=== PATIENT | male | born 1955 | race Caucasian/White ===

== ENCOUNTER 2020-10-14 11:32 | Outpatient (CLI) | payer BC, SELFPAY ==
--- NOTE | ~2020-10-14 | CT_ITS ---
EXAMINATION: CT abdomen pelvis wo con DATE: 10/14/2020 11:56 INDICATION: Right lower quadrant pain TECHNIQUE: Computed tomography (CT) of the abdomen and pelvis was performed without intravenous contr ast. The dose-length product was 386.44 mGy-cm. Automated exposure control and iterative reconstructi on technique were employed. COMPARISON: None. FINDINGS: Lung bases are unremarkable. Heart size normal. No significant pleural or pericardial effus ion. There is a 2 cm hypodense mass of the right hepatic lobe, image 23. There is a smaller subcentim eter hypodensity of the left hepatic lobe. Calcified granulomas in the spleen. The pancreas, adrenal glands and kidneys are unremarkable. Gallbladder is present. There is acute site ethmoid diverticulit is without evidence for perforation or abscess. No free air or free fluid. No abnormal pelvic masses or fluid collections. There are surgical changes consistent with previous ventral hernia repair. Nono bstructive bowel gas pattern. Moderate colonic fecal loading. Mild lumbar spondylosis. IMPRESSION: 1. Acute sigmoid diverticulitis. 2: 2 cm hypodense mass right hepatic lobe. Smaller subcentimeter hypodense lesion of the left hepatic lobe. Correlation with ultrasound or contrast-enhanced CT recommended for further characterization. Reviewed, dictated and finalized at location A. IT[employer] ASSURANCE ADVISOR IMPRESSION: 1. Acute sigmoid diverticulitis. 2: 2 cm hypodense mass right hepatic lobe. Smaller subcentimeter hypodense lesi on of the left hepatic lobe. Correlation with ultrasound or contrast-enhanced C T recommended for further characterization.
== END 2020-10-14 11:33 | disposition home or self-care (01) ==
LOC: ANHIMG 11:40
PROVIDERS: PCP Family Medicine; Visit Provider Family Medicine
DX: R10.31 Right lower quadrant pain (principal); M54.5 Low back pain; K57.32 Diverticulitis of large intestine without perforation or abscess without bleeding; K76.89 Other specified diseases of liver; M47.816 Spondylosis without myelopathy or radiculopathy, lumbar region
CPT/HCPCS: 74176

== ENCOUNTER 2021-03-07 09:35 | Emergency (ER) | payer BC, SELFPAY ==
[2021-03-07 09:40] VITALS: BP 143/86; PULSE 64; RESP 12; TEMP 36.7; O2SAT 99
--- NOTE | 2021-03-07 10:14 | ED.EAR ---
HPI - Ear Problem General Chief complaint: Ear Stated complaint: bleeding from ear Source: patient and RN notes reviewed Limitations: no limitations History of Present Illness HPI Narrative: The patient, previously mostly healthy presents with ear discomfort. Patient states he takes as needed aspirin [325mg, last 2 days], and was cleaning his ears when he noticed some bleeding. No decreased hearing, vertigo, other discharge, other bleeding; symptoms are mild better with compression or elevation Related Data Home Medications Medication Instructions Recorded Confirmed carvedilol 3.125 mg tablet 3.125 mg PO Q12H 02/17/21 03/07/21 losartan 50 mg-hydrochlorothiazide 1 tablet PO DAILY 02/17/21 03/07/21 12.5 mg tablet Allergies Allergy/AdvReac Type Severity Reaction Status Date / Time No Known Allergies Allergy Unverified 03/07/21 09:38 Review of Systems Review of Systems: Narrative: General/Constitutional: No weight loss,fever Eyes: N0: Redness,discharge Ears/Nose/Throat: No: Epistaxis,ear discharge Skin: No Lumps, eruption Neurologic: No Focal Weakness,Sz Hematologic: Denies: Petechiae/Purpura PMFSH Past Medical History Medical History (Updated 03/07/21 @ 10:16 by Isaiah Barnes MD) Acute diverticulitis Adenomatous colon polyp Cellulitis of right forearm Cough present for greater than 3 weeks Cough variant asthma Encounter for prostate cancer screening Encounter for wellness examination in adult Essential (primary) hypertension History of migraine headaches Migraine without aura and without status migrainosus, not intractable Nonvenomous spider bite PVC (premature ventricular contraction) Special screening for other malignant neoplasms Family History Family History (Updated 08/06/19 @ 15:04 by DOCTOR UNKNOWN) Mother Patient's mother is in good health Father Patient's father is in good health Grandparent Family history of dementia Family history of throat cancer, Onset Age: 82 Social History Social History Smoking status: Never smoker Alcohol intake: current Drinks per week: 4 Substance use: never Substance use type: does not use Gender identity (if verbalized by the patient): Male Comments At time of signature, agree with nursing past medical, surgical, social and family history. There is no relevant family history pertinent to the presenting complaint Exam Narrative: Exam Narrative: General Appearance: Well appearing, Well nourished, No distress EYE: PERRLA, EOMI Ears: Right EAC with bleeding abrasion; left external ear normal, EAC normal with tiny healed abrasion, and both TMs normal Nose: Normal nose, Nares clear Mouth/Throat: Normal appearing, Normal lips Neck: Supple, No adenopathy Respiratory: Airway patent, No respiratory distress Skin: Warm, Dry Neurological: A&O x3, Normal affect Course Vital Signs Vital signs: Vital Signs Temperature 98.1 F 03/07/21 09:40 Pulse Rate 64 03/07/21 09:40 Respiratory Rate 12 03/07/21 09:40 Blood Pressure 143/86 H 03/07/21 09:40 Pulse Oximetry 99 03/07/21 09:40 Temperature 98.1 F 03/07/21 09:40 Pulse Rate 64 03/07/21 09:40 Respiratory Rate 12 03/07/21 09:40 Blood Pressure 143/86 H 03/07/21 09:40 Pulse Oximetry 99 03/07/21 09:40 Procedures Other Procedure Procedure 1: Other Procedure: Bleeding Control Date MARCH 07 Direct Inspection Clots Removed by- Q TIP Cautery Used SIVER NITRATE Patient Tolerated Procedure WELL Medical Decision Making Vital Signs Vital Signs: Vital Signs Temperature 98.1 F 03/07/21 09:40 Pulse Rate 64 03/07/21 09:40 Respiratory Rate 12 03/07/21 09:40 Blood Pressure 143/86 H 03/07/21 09:40 Pulse Oximetry 99 03/07/21 09:40 Temperature 98.1 F 03/07/21 09:40 Pulse Rate 64 03/07/21 09:40 Respiratory Rate 12 03/07/21 09:40 Blood Pressure 143/
== END 2021-03-07 10:20 | disposition home or self-care (01) ==
PROVIDERS: Emergency Provider Emergency Medicine; PCP Family Medicine
DX: S00.411A Abrasion of right ear, initial encounter (principal); X58.XXXA Exposure to other specified factors, initial encounter; I10 Essential (primary) hypertension
CPT/HCPCS: 99213; G0463

== ENCOUNTER → 2022-01-27 15:40 | Outpatient (CLI) | payer OTHER, SELFPAY ==
--- NOTE | ~2022-01-27 | XR_ITS ---
XR cervical spine 4-5V DATE: 01/27/2022 15:59 INDICATION: Neck pain TECHNIQUE: AP, open-mouth, lateral, swimmer views COMPARISON: None FINDINGS: There is reversal of curvature in the upper cervical region. C1 and C2 are normally aligned and the odontoid process is intact. No fracture or dislocation or lock ed facet or prevertebral soft tissue swelling. Cervical interspaces are preserved. IMPRESSION: Reversal of cervical curvature in the upper cervical area Reviewed, dictated and finalized at location A.
== END ==
PROVIDERS: PCP Family Medicine; Visit Provider Family Medicine
DX: M54.2 Cervicalgia (principal)
CPT/HCPCS: 72050

== ENCOUNTER 2022-05-03 13:55 | Outpatient (RCR) | payer OTHER, SELFPAY ==
[2022-05-03 14:27] VITALS: BP 120/60; PULSE 70; RESP 20; TEMP 36.7; O2SAT 98
[2022-05-03] MEDS: diphenhydrAMINE HCl CAP 25 MG CAPSULE PO (14:37)
[2022-05-03] MEDS: FAMOTIDINE 20 MG TABLET PO (14:37)
[2022-05-03] MEDS: ACETAMINOPHEN 325 MG TABLET 650 MG PO (14:37)
[2022-05-03] MEDS: BEBTELOVIMAB 175 MG/2 ML VIAL IV PUSH (14:56)
[2022-05-03 15:40] VITALS: BP 106/74; PULSE 70; O2SAT 99
== END 2022-05-03 16:00 ==
LOC: AMCINF 13:55
PROVIDERS: PCP Family Medicine; Visit Provider Internal Medicine Hematology & Oncology
DX: U07.1 COVID-19 (principal); I10 Essential (primary) hypertension; I25.10 Atherosclerotic heart disease of native coronary artery without angina pectoris; J45.909 Unspecified asthma, uncomplicated
CPT/HCPCS: A9270; M0222; Q0222

== ENCOUNTER 2023-09-15 03:18 | Emergency (ER) | payer OTHER, SELFPAY ==
[2023-09-15 03:19] VITALS: BP 151/87; PULSE 64; RESP 15; TEMP 36.7; O2SAT 100
--- NOTE | 2023-09-15 03:40 | ED.GENADULT ---
HPI - General Adult General Chief complaint: Unspecified Stated complaint: constipation Time Seen by Provider: 09/15/23 03:24 History of Present Illness HPI narrative: This is a 68-year-old male with no significant past medical history, who presents to the emergency department complaining of constipation. The patient states his last bowel movement 4 days ago was loose. The same day, he took Imodium and has since not been able to have a bowel movement. He states he is able to pass gas and small amounts of liquid stool without blood. He complains of 8/10 pressure-like pain at the rectum, aggravated by sitting. He denies nausea or vomiting. Related Data Home Medications Medication Instructions Recorded Confirmed carvedilol 3.125 mg tablet 3.125 mg PO Q12H 02/17/21 09/01/23 losartan 50 mg-hydrochlorothiazide 1 tablet PO DAILY 02/17/21 09/01/23 12.5 mg tablet fluticasone 100 mcg-salmeterol 50 1 inh inhalation Q12H PRN 09/01/23 09/01/23 mcg/dose blistr powdr for inhalation (Advair Diskus) Allergies Allergy/AdvReac Type Severity Reaction Status Date / Time No Known Allergies Allergy Verified 09/01/23 08:29 Review of Systems Review of Systems: CONSTITUTIONAL: Denies fever, chills, or sweats. CARDIOVASCULAR: Denies chest pain, palpitations, or edema. RESPIRATORY: Denies cough or dyspnea. GASTROINTESTINAL: Constipation, rectal pain denies nausea, vomiting, or diarrhea. GENITOURINARY: Denies dysuria or hematuria. SKIN: Denies rash or itching. MUSCULOSKELETAL: Denies back pain, joint pain, or myalgia. NEUROLOGIC: Denies headache, numbness, dizziness, or weakness. PSYCHIATRIC: Denies anxiety or depression. [facility] Past Medical History Medical History Acute diverticulitis Adenomatous colon polyp Tubulovillous adenoma descending colon 9 mm 09/16/2019 with recheck in [address] Vasques BMI 25.0-25.9,adult Cellulitis of right forearm Chronic neck pain x-ray of the cervical spine on 01/27/2022 was unremarkable except for loss of cervical lordosis Cough present for greater than 3 weeks Cough variant asthma Encounter for prostate cancer screening PSA 0.87 on 02/22/2022. Encounter for wellness examination in adult Essential (primary) hypertension History of migraine headaches Impacted cerumen, right ear Migraine without aura and without status migrainosus, not intractable Nonvenomous spider bite Overweight (BMI 25.0-29.9) Pharyngitis, acute PVC (premature ventricular contraction) Rash Small intestinal bacterial overgrowth (SIBO) Special screening for other malignant neoplasms Family History Family History Mother Patient's mother is in good health Father Patient's father is in good health Grandparent Family history of dementia Family history of throat cancer, Onset Age: 82 Social History Social History Smoking status: Never smoker Alcohol intake: current Drinks per week: 4 Substance use: never Substance use type: does not use Gender identity (if verbalized by the patient): Male Exam Narrative: GENERAL: Well-appearing, well-nourished, and in no acute distress. HEAD: Normocephalic, atraumatic. EYES: PERRLA and EOMI. CHEST: Clear to auscultation. No respiratory distress. No wheezes rales or rhonchi HEART: Regular rate and rhythm. No murmur heard. Normal peripheral pulses. ABDOMEN: Soft, mild suprapubic tenderness to palpation, without rebound or guarding, nondistended, normal active bowel sounds. RECTAL: Stool is noted in the rectal vault, without mass or hemorrhoid. There is no noted bleeding EXTREMITIES: Normal range of motion. No edema. SKIN: Warm, dry, no rash. NEURO: No focal deficits. Alert and oriented x3. PSYCH: Normal mood and affect. Course Course Emergency Course: 06:00 - After a Fle
--- NOTE | 2023-09-15 05:35 | PC.NURSE ---
Pt soiled gown and socks. Change of gown and non slip socks provided to pt.
--- NOTE | 2023-09-15 05:50 | PC.NURSE ---
Pt up to restroom x 2 after half of soap suds enema. After second attempt, pt reports was able to pass a large hard stool, along with additional diarrhea stool. Reports feeling better and ok with discharge. Dr Fuentes notified.
[2023-09-15 06:14] VITALS: BP 134/81; PULSE 62; RESP 16; O2SAT 98
== END 2023-09-15 06:16 | disposition home or self-care (01) ==
PROVIDERS: Emergency Provider Preventive Medicine Aerospace Medicine; PCP Family Medicine
DX: K59.00 Constipation, unspecified (principal)
CPT/HCPCS: 99282

== ENCOUNTER → 2023-10-26 12:46 | Outpatient (CLI) | payer OTHER, SELFPAY ==
--- NOTE | ~2023-10-26 | CT_ITS ---
EXAMINATION: CT abdomen pelvis wo con DATE: 10/26/2023 13:00 INDICATION: Lower abdominal pain TECHNIQUE: Computed tomography (CT) of the abdomen and pelvis was performed without intravenous contr ast. The dose-length product (DLP) was 597.56 mGy-cm. Automated exposure control and iterative recons truction technique were employed. COMPARISON: 10/14/2020 FINDINGS: Minimal dependent atelectasis is present in the lung bases. The heart size is normal. Stabl e hypoattenuating lesions of the liver, measuring up to 2 cm in the right hepatic lobe, likely repres ent cysts or hemangiomas. The spleen is unremarkable. The pancreas, gallbladder, and adrenal glands a re normal. The kidneys are unremarkable. No pathologically enlarged abdominal or pelvic lymph nodes a re identified. No free intraperitoneal gas or evidence of bowel obstruction. Colonic diverticulosis i s present without evidence of diverticulitis. The appendix is normal. There is a questionable right-s ided varicocele. There is mild lumbar spondylosis. IMPRESSION: 1. Diverticulosis without evidence of diverticulitis. 2. Possible right-sided varicocele. Reviewed, dictated and finalized at location B. WINDER STRAP
== END ==
PROVIDERS: PCP Nurse Practitioner Family; Visit Provider Nurse Practitioner Family
DX: R10.30 Lower abdominal pain, unspecified (principal); R14.0 Abdominal distension (gaseous); R19.5 Other fecal abnormalities; Z87.19 Personal history of other diseases of the digestive system; K57.30 Diverticulosis of large intestine without perforation or abscess without bleeding
CPT/HCPCS: 74176

== ENCOUNTER 2024-06-06 08:19 | Outpatient (CLI) | payer OTHER, SELFPAY ==
--- NOTE | ~2024-06-06 | XR_ITS ---
XR cervical spine 4-5V Ordering provider: Dung Lara MD History: . M54.2 - Cervicalgia . Comparison: January 27, 2022 FINDINGS: VERTEBRAL BODIES: Normal height and alignment. No visible fracture or subluxation. The dens is intact . DISK SPACES: Well maintained. PARASPINOUS SOFT TISSUES: No prevertebral soft tissue swelling. IMPRESSION: No acute osseous abnormality cervical spine. Reviewed, dictated and finalized at location A.
== END 2024-06-06 08:20 ==
PROVIDERS: Visit Provider Family Medicine
DX: M54.2 Cervicalgia (principal)
CPT/HCPCS: 72050

== ENCOUNTER 2024-08-07 13:07 | Outpatient (CLI) | payer OTHER, SELFPAY ==
--- NOTE | ~2024-08-07 | CT_ITS ---
EXAMINATION: CT abdomen pelvis w con DATE: 08/07/2024 13:44 INDICATION: Low abdominal pain and tenderness. TECHNIQUE: Computed tomography (CT) of the abdomen and pelvis was performed with 100 mL Omnipaque 350 intravenous contrast. Automated exposure control and iterative reconstruction technique were employe d. The dose-length product was 463.40 mGy-cm. COMPARISON: CT abdomen and pelvis 10/26/2023 FINDINGS: The visualized portions of the lung bases demonstrate mild atelectasis. No pleural effusion . The heart size is normal. No pericardial effusion. There are cysts in the liver measuring up to 19 mm. The gallbladder is normal. Calcifications in the spleen are consistent with old granulomatous dis ease. The pancreas, adrenal glands, and kidneys are normal. There is diverticulosis of the colon with out evidence of diverticulitis. The appendix is normal. There are no pathologically enlarged lymph no maurisio. There is no free intraperitoneal fluid. There is mild lumbar spondylosis. IMPRESSION: 1. No etiology for the patient's symptoms. Reviewed, dictated and finalized at location A.
[2024-08-07 13:36] LABS: Estimated Glomerular Filt Rate > 60
== END 2024-08-07 13:08 | disposition home or self-care (01) ==
PROVIDERS: PCP Family Medicine; Visit Provider Family Medicine
DX: R10.30 Lower abdominal pain, unspecified (principal); Z87.19 Personal history of other diseases of the digestive system
CPT/HCPCS: 74177; Q9967

== ENCOUNTER 2024-08-30 03:02 | Day surgery (SDC) | payer OTHER, SELFPAY ==
[2024-08-20 10:27] VITALS: BMI 24.6
[2024-08-30 08:40] VITALS: BP 121/75; PULSE 63; RESP 16; TEMP 36; O2SAT 98; BMI 23.9
[2024-08-30] MEDS: LACTATED RINGERS 1,000 ML 150 ML IV CONT (09:03)
--- NOTE | 2024-08-30 09:16 | WPDANESEPPF ---
Anes - Initial Pre Proc Eval Procedure: Operation Date: 08/30/24 10:00 Proposed Procedures p Colonoscopy - Heriberto Blum MD Date/Time: 08/30/24 09:16 Surgeon: Heriberto Blum MD Pre Op Diagnosis: benign neoplasm colon Patient Data Age: 68 Gender: M Height: 1.78 m Weight: 75.6 kg Last Vital Signs Temp 36.0 C L 08/30/24 08:40 Pulse 63 08/30/24 08:40 Resp 16 08/30/24 08:40 BP 121/75 08/30/24 08:40 Pulse Ox 98 08/30/24 08:40 O2 Del Method Room Air 08/30/24 08:40 Allergies Allergy/AdvReac Type Severity Reaction Status Date / Time No Known Allergies Allergy Verified 08/30/24 08:44 Home Medications Medication Instructions Recorded Confirmed Type carvedilol 3.125 mg tablet 3.125 mg PO Q12H 02/17/21 08/30/24 History losartan 50 mg-hydrochlorothiazide 1 tablet PO DAILY 02/17/21 08/30/24 History 12.5 mg tablet fluticasone 100 mcg-salmeterol 50 1 inh inhalation Q12H PRN asthma 09/01/23 08/30/24 History mcg/dose blistr powdr for inhalation (Advair Diskus) Patient hx anesthesia problems: none Family hx anesthesia problems: none Results Review: All pre-operative results and documents have been reviewed as part of the pre-operative evaluation. [facility] Past Medical History Medical History Acute diverticulitis Adenomatous colon polyp Tubulovillous adenoma descending colon 9 mm 09/16/2019 [address] recheck in [address] Vasques [place]ash BMI 24.0-24.9, adult BMI 25.0-25.9,adult Cellulitis of right forearm Chronic neck pain x-ray of the cervical spine on 01/27/2022 was unremarkable except for loss of cervical lordosis. X-ray cervical spine on 06/06/2024 was unremarkable. Cough present for greater than 3 weeks Cough variant asthma Encounter for prostate cancer screening PSA 0.87 on 02/22/2022. Encounter for wellness examination in adult Essential (primary) hypertension History of migraine headaches Hx of diverticulitis of colon (10/14/20) acute sigmoid diverticulosis on 10/14/2020. Normal CT of the abdomen and pelvis on 08/07/2024. Impacted cerumen, right ear Loose stools Lower abdominal pain CT of the abdomen and pelvis on 08/07/2024 was normal. Migraine without aura and without status migrainosus, not intractable Nonvenomous spider bite Overweight (BMI 25.0-29.9) Pharyngitis, acute PVC (premature ventricular contraction) Rash Small intestinal bacterial overgrowth (SIBO) Special screening for other malignant neoplasms Family History Family History Mother Patient's mother is in good health Father Patient's father is in good health Grandparent Family history of dementia Family history of throat cancer, Onset Age: 82 Social History Social History Smoking status: Never smoker Alcohol intake: current Drinks per week: 4 Substance use: never Substance use type: does not use Do You Feel Safe in your Home?: Yes Lack of Transportation: No Lack of Food: Never True Current Housing: I Have Housing Concerned About Future Housing: No Difficulty Paying Gas/Electric Bills: No Difficulty Paying for Meds: No Currently Unemployed: No Education: Master's Degree or Higher Difficulty w/ Childcare or Family Care: No Living arrangements: with family Gender identity (if verbalized by the patient): Male Spiritual care concerns: No Anes - Eval Final PreProcedure Day of Procedure 08/30/24 09:16 Patient weight: normal Heart: regular rate and rhythm Lungs: clear to auscultation Airway: Mallampati scale class II Neurological: alert and oriented Last oral intake: >/= 8 hours ASA classification: II Emergent: no Anesthetic plan: proceed Anesthesia type and monitoring: general GIVS and standard monitoring Results Review: All pre-operative results and documents have been reviewed as part of the pre-operative evaluation. Informed Consent: The patient's anesthetic plan and its attendant risks and benefits were discussed with the patient/family/POA. Questions were solicited and answers provided to the satisfaction of the patient/family/POA.
--- NOTE | 2024-08-30 09:30 | PM.IMHP ---
H&P: HPI History of Present Illness Date/Time: 08/30/24 09:30 Chief Complaint: History of colon polyps Narrative: The patient has a history of colonic polyps, the last colonoscopy was 5y ago [facility] Past Medical History Medical History Acute diverticulitis Adenomatous colon polyp Tubulovillous adenoma descending colon 9 mm 09/16/2019 with recheck in [address] Vasques Bloating BMI 24.0-24.9, adult BMI 25.0-25.9,adult Cellulitis of right forearm Chronic neck pain x-ray of the cervical spine on 01/27/2022 was unremarkable except for loss of cervical lordosis. X-ray cervical spine on 06/06/2024 was unremarkable. Cough present for greater than 3 weeks Cough variant asthma Encounter for prostate cancer screening PSA 0.87 on 02/22/2022. Encounter for wellness examination in adult Essential (primary) hypertension History of migraine headaches Hx of diverticulitis of colon (10/14/20) acute sigmoid diverticulosis on 10/14/2020. Normal CT of the abdomen and pelvis on 08/07/2024. Impacted cerumen, right ear Loose stools Lower abdominal pain CT of the abdomen and pelvis on 08/07/2024 was normal. Migraine without aura and without status migrainosus, not intractable Nonvenomous spider bite Overweight (BMI 25.0-29.9) Pharyngitis, acute PVC (premature ventricular contraction) Rash Small intestinal bacterial overgrowth (SIBO) Special screening for other malignant neoplasms Family History Family History Mother Patient's mother is in good health Father Patient's father is in good health Grandparent Family history of dementia Family history of throat cancer, Onset Age: 82 Social History Social History Smoking status: Never smoker Alcohol intake: current Drinks per week: 4 Substance use: never Substance use type: does not use Do You Feel Safe in your Home?: Yes Lack of Transportation: No Lack of Food: Never True Current Housing: I Have Housing Concerned About Future Housing: No Difficulty Paying Gas/Electric Bills: No Difficulty Paying for Meds: No Currently Unemployed: No Education: Master's Degree or Higher Difficulty w/ Childcare or Family Care: No Living arrangements: with family Gender identity (if verbalized by the patient): Male Spiritual care concerns: No Meds Home Medications and Allergies Home Medications Medication Instructions Recorded Confirmed Type carvedilol 3.125 mg tablet 3.125 mg PO Q12H 02/17/21 08/30/24 History losartan 50 mg-hydrochlorothiazide 1 tablet PO DAILY 02/17/21 08/30/24 History 12.5 mg tablet fluticasone 100 mcg-salmeterol 50 1 inh inhalation Q12H PRN asthma 09/01/23 08/30/24 History mcg/dose blistr powdr for inhalation (Advair Diskus) Allergies Allergy/AdvReac Type Severity Reaction Status Date / Time No Known Allergies Allergy Verified 08/30/24 08:44 Vital Signs Vital Signs - 24 hr 08/30/24 08:40 Temperature 96.8 F L Pulse Rate 63 Respiratory Rate 16 Blood Pressure 121/75 Pulse Oximetry 98 Oxygen Delivery Room Air Assessment and Plan Assessment and plan (1) History of colonic polyps: Code(s): Z86.0100 - Personal history of colon polyps, unspecified Status: Acute Assessment and Plan: The patient is deemed a good candidate for the procedure. Consent signed. Will proceed.
[2024-08-30 09:57] VITALS: BP 90/55; PULSE 46; RESP 13; O2SAT 97
[2024-08-30 10:07] VITALS: BP 118/71; PULSE 52; RESP 14; O2SAT 100
[2024-08-30 10:17] VITALS: BP 140/84; PULSE 59; RESP 15; O2SAT 100
== END 2024-08-30 10:29 | disposition home or self-care (01) ==
PROVIDERS: PCP Family Medicine; Visit Provider Internal Medicine Gastroenterology
PROC: 0DJD8ZZ Inspection of Lower Intestinal Tract, Via Natural or Artificial Opening Endoscopic (ICD-10-PCS; CPT 45378; principal; 2024-08-30 10:00)
DX: Z12.11 Encounter for screening for malignant neoplasm of colon (principal); D12.8 Benign neoplasm of rectum; K57.30 Diverticulosis of large intestine without perforation or abscess without bleeding; K64.1 Second degree hemorrhoids
CPT/HCPCS: 45385; 88305; J2003; J2704; J7120

== ENCOUNTER 2025-03-20 13:17 | Emergency (ER) | payer OTHER, SELFPAY ==
--- NOTE | ~2025-03-20 | XR_ITS ---
XR foot RT min 3V Ordering provider: Michael Hendrix MD History: . fall . Comparison: None. FINDINGS: BONES: Oblique fracture of the fifth metatarsal bone. Chip fracture is seen at the base of the proxim al phalanx of the big toe. JOINT SPACES: Normal. No tarsal coalition. SOFT TISSUES: Normal. IMPRESSION: Oblique fracture of the fifth metatarsal bone. Highly suggestive chip fracture at the base of the proximal phalanx of the big toe. Reviewed, dictated and finalized at location A.
--- OUTSIDE RECORDS SUMMARY | 2025-03-20 13:20 | XMS_ITS | Referral Summary ---
Author Organization [facility] [address] Address [address] [place] [id number] Care Team Providers Care Animal Maintenance Supervisor Name Role Phone Dung Lara MD Primary Care Provider [phone] Lexa Damico MD Unavailable [phone] Allergies No known active allergies Medications mometasone (ELOCON) 0.1 % ointment APPLY THIN LAYER TOPICALLY TO THE AFFECTED AREA ON CHEEKS TWICE DAILY FOR 1 WEEK Active azithromycin (ZITHROMAX) 250 mg tablet Take 2 tabs (500 mg) by mouth today, than 1 tab (250 mg) daily for 4 days. 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 Inflamed seborrheic keratosis 01/04/2023 Epiretinal membrane 03/30/2022 Hypertension 03/30/2022 Migraine 03/30/2022 Mitral valve insufficiency 03/30/2022 Premature atrial contraction 03/30/2022 Pseudophakia 03/30/2022 Ventricular premature beats 03/30/2022 Inguinal hernia 05/05/2017 Social History Tobacco Use Types Packs/Day Years Used Date Smoking Tobacco: Never Assessed Sex and Gender Information Value Date Recorded Sex Assigned at Not on file Legal Sex Male 10:21 PM [employer] Gender Identity Not on file Sexual Orientation Not on file Last Filed Vital Signs Vital Sign Reading Time Taken Comments Blood Pressure 116/75 05/25/2024 11:51 AM CDT Pulse 68 05/25/2024 11:51 AM CDT Temperature 36.8 C (98.2 F) 05/25/2024 11:51 AM CDT Respiratory Rate 14 05/25/2024 11:51 AM CDT Oxygen Saturation 97% 05/25/2024 11:51 AM CDT Inhaled Oxygen Concentration - - Weight 77.1 kg (170 lb) 05/25/2024 11:51 AM CDT Height 177.8 cm (5' 10) 05/25/2024 11:51 AM CDT Body Mass Index 24.39 05/25/2024 11:51 AM CDT Plan of Treatment Not on file Insurance [facility] Care Teams Animal Maintenance Supervisor Relationship Specialty Start Date End Date Dung Lara MD [address] [address] PCP - General Family Medicine 12/30/22 Lexa Damico MD [facility] [place] [address] 12/30/22
--- OUTSIDE RECORDS SUMMARY | 2025-03-20 13:20 | XMS_ITS | Clinical Summary ---
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[employer] Gender Identity Not on file Sexual Orientation Not on file Obstetrics History Last Filed Vital Signs Vital Sign Reading [...] 05/25/2024 11:51 AM CDT Plan of Treatment Health Maintenance Due Date Last Done Comments Colon Cancer Screening-Colonoscopy 1955 Depression Screening 1957 Fall Risk Assessment 1955 Hepatitis C Screening 1957 Prostate Cancer Screening-PSA 1957 DTaP/Tdap/Td Vaccine (1 - Tdap) 1968 Hepatitis B Screening 1975 Zoster Vaccine (2 of 3) 10/24/2014 08/29/2014 Pneumococcal vaccine 65+ (2 of 2 - PCV) 01/11/2021 01/12/2020 Abdominal Aortic Aneurysm (A AA) Screen 2022 Well Visit 65+ 2022 Covid-19 Vaccine ( - 2023-2 5 season) 2024 09/13/2022, 04/13/2022, 08/23/2021, Additional history exists Influenza Vaccine (Season Ended) 2025 08/23/2022, 08/03/2022, 08/09/2021, Additional history exists Insurance [facility] Address: [address] [address] [facility] H[facility]PPO Address: [address] [address] [facility] H[facility]/PPO Address: [address] [facility] H[facility]/PP[facility] Address: [id number] [place] [address] Care Teams Naphthol Soaping Machine Operator Relationship Specialty Start Date End Date Dung Lara MD [address] [address] PCP - General Family Medicine 12/30/22 Lexa Damico MD [facility] [place] [address] 12/30/22
--- OUTSIDE RECORDS SUMMARY | 2025-03-20 13:20 | XMS_ITS | Encounter Summary ---
Author Organization [facility] Address [address] [facility] [place] [address] Care Team Providers Care Captain'S Assistant Name Role Phone Lexa Damico MD Primary Care Provider [phone] Lexa Damico MD Unavailable Dung Lara MD Primary Care Provider [phone] Encounter Details Date Type Department Care Team (Late st Contact Info) Description 09/30/2020 Lab Requisition [facility] [address] [facility], [facility] [place] [id number] Santa Kennedy MD [address] [facility] 3 [place] [address] Social History Tobacco Use Types Packs/Day Years Used Date Smoking Tobacco: Never Smokeless Tobacco: Never Sex and Gender Information Value Date Recorded Sex Assigned at Not on file Legal Sex Male 11:20 AM CDT Gender Identity Not on file Sexual Orientation Not on file documented as of this encounter Plan of Treatment Not on file documented as of this encounter Procedures Procedure Name Priority Date/Time Associated Diagnosis Comments DERMATOPATHOLOGY Routine 09/29/2020 12:0 0 AM COPPERSMITH HELPER documented in this encounter Results * DERMATOPATHOLOGY (09/29/2020 12:00 AM COPPERSMITH HELPER) Case Report Dermatopathology Report Case: [id number] Authorizing Provider: Santa Kennedy MD Collected: 09/29/2020 12:00 AM Ordering Location: [facility] DermPath Lab Received: 09/30/2020 06:05 AM Pathologist: Viola Durant MD Specimen: Skin, right posterior shoulder 0 2:33 PM [facility] DERMATOPATHOLOGY LABORATORY Final Diagnosis Specimen A. SKIN, right posterior shoulder: SEBORRHEIC KERATOSIS, IRRITATED AND INFLAMED (L82.0) OVERLYING CUTANEOUS HORN (L85.8) 0 2:33 PM [facility] DERMATOPATHOLOGY LABORATORY at 1433 COPPERSMITH HELPER Clinical History R/O SCC, pink papule. 0 2:33 PM [facility] DERMATOPATHOLOGY LABORATORY Gross Description Specimen A: Received is one formalin filled container labeled with the patient's name and designated right posterior shoulder. The specimen consists of a shave measuring [id number]. Jar 0. 0 2:33 PM [facility] DERMATOPATHOLOGY LABORATORY Microscopic Description Specimen A. SKIN, right posterior shoulder: Sections show acanthosis, papillomatosis, hyperkeratosis, and squamous eddies. There is a lymphohistiocytic infiltrate within the papillary dermis. There is a column of marked compact hyperkeratosis. 0 2:33 PM [facility] DERMATOPATHOLOGY LABORATORY Disclaimer An external and internal positive and negative controls are appropriate for the histochemical, immunohistochemical and immunofluorescence stain(s) in this case (if any), except where stated explicitly. The performance characteristics of the stain(s) cited in this report were developed and its performance characteristic determined by the Dermatopathology Laboratory at [facility], directed by Dr. Brook Durant. These tests need not be, and therefore are not, approved by the [place] Food and Drug Administration. The tests are used for clinical purposes. Billing Codes Specimen Charges Stain Charges 46335 1 0 2:33 PM [facility] DERMATOPATHOLOGY LABORATORY Embedded Images 0 2:33 PM [facility] DERMATOPATHOLOGY LABORATORY Pathology/Cytolog y TISSUE SPECIMEN FROM SKIN / Unknown 09/29/2020 09/30/2020 6:05 AM [facility] Santa Kennedy MD LAB - PATHOLOGY/CYTOLOGY ORD ERABLES Final Result DERMATOPATHOLOGY LABORATORY [facility] - Department of Dermatology [address], [address] [phone] documented in this encounter Visit Diagnoses Not on filedocumented in this encounter Care Teams Captain'S Assistant Relationship Specialty Start Date End Date Lexa Damico MD [address] [place] [address] PCP - General Family Medicine 10/02/17 02/15/24 Dung Lara MD [address] [facility] [facility] [address] [place] [address] PCP - General Family Medicine 02/16/24 Lexa Damico MD [address] [place] [address] Family Medicine 10/02/17 documented as of this encounter
--- OUTSIDE RECORDS SUMMARY | 2025-03-20 13:20 | XMS_ITS | Encounter Summary ---
Author Organization [facility] Address [address] [facility] [place] [address] Care Team Providers Care Asbestos Pipe Supervisor Name Role Phone Lexa Damico MD Primary Care Provider [phone] Lexa Damico MD Unavailable Dung Lara MD Primary Care Provider [phone] Encounter Details Date Type Department Care Team (Late st Contact Info) Description 03/25/2020 Lab Requisition [facility] [address] [facility], [facility] [place] [id number] Jessica Lara, [address] [facility] 3 [place] [address] Social History Tobacco Use Types Packs/Day Years Used Date Smoking Tobacco: Never Smokeless Tobacco: Never Sex and Gender Information Value Date Recorded Sex Assigned at Not on file Legal Sex Male 11:20 AM CDT Gender Identity Not on file Sexual Orientation Not on file COVID-19 Exposure Response Date Recorded In the last month, have you been in contact with someone who was confirmed or suspected to have Coronavirus / COVID-19? No / Unsure 03/22/2020 2:03 PM CDT documented as of this encounter Plan of Treatment Not on file documented as of this encounter Procedures Procedure Name Priority Date/Time Associated Diagnosis Comments DERMATOPATHOLOGY Routine 03/24/2020 12:0 0 AM CDT documented in this encounter Results * DERMATOPATHOLOGY (03/24/2020 12:00 AM CDT) Case Report Dermatopathology Report Case: [id number] Authorizing Provider: Jessica Lara DO Collected: 03/24/2020 12:00 AM Ordering Location: [facility] DermPath Lab Received: 03/25/2020 06:39 AM Pathologist: Viola Durant MD Specimens: A) - Skin, right scalp B) - Skin, post crown of scalp C) - Skin, right chest 0 6:00 PM CDT DERMATOPATHOLOGY LABORATORY Final Diagnosis Specimen A. SKIN, right scalp: BASAL CELL CARCINOMA (C44.41) (see microscopic description and comment) Specimen B. SKIN, post crown of scalp: BASAL CELL CARCINOMA, NODULAR TYPE (C44.41) Specimen C. SKIN, right chest: ACTINIC KERATOSIS, LICHENOID (L57.0) 0 6:00 PM CDT DERMATOPATHOLOGY LABORATORY at 1800 CDT Clinical History A-B: R/O BCC. C: BCC vs LPLK. 0 6:00 PM CDT DERMATOPATHOLOGY LABORATORY Gross Description Specimen A: Received is one formalin filled container labeled with the patient's name and designated right scalp. The specimen consists of a shave measuring 5s3m3gt. Jar 0. Specimen B: Received is one formalin filled container labeled with the patient's name and designated post crown of scalp. The specimen consists of a shave measuring 1n4e9ht. Jar 0. Specimen C: Received is one formalin filled container labeled with the patient's name and designated right chest. The specimen consists of a shave measuring 7s2d9tm. Jar 0. 0 6:00 PM CDT DERMATOPATHOLOGY LABORATORY Microscopic Description Specimen A. SKIN, right scalp: The specimen consists of aggregates of basaloid cells, located within the superficial dermis, with high nuclear to cytoplasmic ratio and peripheral palisading. COMMENT: The small size of the specimen limits subtyping of the lesion. Specimen B. SKIN, post crown of scalp: Within the dermis there are aggregates of basaloid cells with a high nuclear to cytoplasmic ratio and peripheral palisading. Specimen C. SKIN, right chest: There is focal parakeratosis. The lower half of the epidermis shows disorderly maturation of keratinocytes with nuclear pleomorphism. The dermis shows a band-like, chronic inflammatory infiltrate with occasional apoptotic keratinocytes and some basal vacuolar alteration. 0 6:00 PM CDT DERMATOPATHOLOGY LABORATORY Disclaimer An external and internal positive and negative controls are appropriate for the histochemical, immunohistochemical and immunofluorescence stain(s) in this case (if any), except where stated explicitly. The performance characteristics of the stain(s) cited in this report were developed and its performance characteristic determined by the Dermatopathology Laboratory at [facility], directed by Dr. Brook Durant. These tests need not be, and therefore are not, approved by the [place] Food and Drug Administration. The tests are used for clinical purposes. Billing Codes Specimen Charges Stain Charges 37919 [id number] 46251 1 1 1 0 6:00 PM CDT DERMATOPATHOLOGY LABORATORY Embedded Images 0 6:00 PM CDT DERMATOPATHOLOGY LABORATORY Pathology/Cytology TISSUE SPECIMEN FROM SKIN / Unknown 03/24/2020 03/25/2020 6:39 AM CDT Miscellaneous samples (specimen) TISSUE SPECIMEN FROM SKIN / Unknown 03/24/2020 03/25/2020 6:39 AM CDT Miscellaneous samples (specimen) TISSUE SPECIMEN FROM SKIN / Unknown 03/24/2020 03/25/2020 6:39 AM CDT us Jessica Lara DO LAB - PATHOLOGY/CYTOLOGY ORDERABLES Final Result Performing Organization Address City/State/[facility] Co de Phone Number DERMATOPATHOLOGY LABORATORY [facility] - Department of Dermatology [facility]/[address] [phone] documented in this encounter Visit Diagnoses Not on filedocumented in this encounter Care Teams Asbestos Pipe Supervisor Relationship Specialty Start Date End Date Lexa Damico MD [address] [place] [address] PCP - General Family Medicine 10/02/17 02/15/24 Dung Lara MD [address] [place] [address] PCP - General Family Medicine 02/16/24 Lexa Damico MD [address] [place] [address] Family Medicine 10/02/17 documented as of this encounter
--- OUTSIDE RECORDS SUMMARY | 2025-03-20 13:20 | XMS_ITS | Clinical Summary ---
Author Organization [facility] [employer] Address [address] [facility] [place] [address] Care Team Providers Care Laborer Tree Tapping Name Role Phone Lexa Damico MD Unavailable Dung Lara MD Primary Care Provider [phone] Source Comments [facility] [employer],non-owned Affiliates and Associated Physician Practices is amultiple site organization consisting of ambulatory clinics and hospital sitesin [place], [place], [place] and [place]. This disclosure is being madepursuant to the Care Everywhere program and may not contain all information available regarding this patient. Last updated 18.[facility] [employer] Allergies No known active allergies Medications * Be aware that medications may not be up to date on this document. Alwaysverify current medications with the patient. losartan - hydroCHLOROthiazide (HYZAAR) 50-12.5 MG tablet Take 1 (one) tablet by mouth once daily Active carvedilol (COREG) 3.125 MG tablet Take 1 (one) tablet by mouth 2 times daily with morning and evening meal Active fluticasone diskus (FLOVENT DISKUS) 100 MCG/BLIST AEPB inhaler Inhale 1 (one) puff by mouth 2 times daily Active SUMAtriptan (IMITREX) 100 MG tablet TAKE 1 TABLET BY MOUTH AT ONSET OF HEADACHE. MAY REPEAT 1 TABLET IN 2 HOURS IF NO RELIEF. 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 Ventricular premature beats 03/30/2022 Premature atrial contraction 03/30/2022 Mitral valve insufficiency 03/30/2022 Migraine 03/30/2022 Hypertension 03/30/2022 Epiretinal membrane 03/30/2022 Pseudophakia 03/30/2022 Inguinal hernia 05/05/2017 Immunizations Immunization Administration Dates Next Due INFLUENZA VACCINE 08/03/2022 Family History Medical History Relation Name Comments Cancer - Skin, Non Melanoma Mother Cancer - Skin, Melanoma Neg Hx Relation Name Status Comments Father Alive Mother Alive Social History Tobacco Use Types Packs/Day Years Used Date Smoking Tobacco: Never Smokeless Tobacco: Never Alcohol Use Standard Drinks/Week Comments Yes 0 (1 standard drink = 0.6 oz pur e alcohol) Sex and Gender Information Value Date Recorded Sex Assigned at Not on file Legal Sex Male 11:20 AM CDT Gender Identity Not on file Sexual Orientation Not on file Last Filed Vital Signs Vital Sign Reading Time Taken Comments Blood Pressure 126/80 05/17/2021 5:56 PM CDT Pulse 84 05/17/2021 5:56 PM CDT Temperature 36.9 C (98.5 F) 05/17/2021 5:56 PM CDT Respiratory Rate 18 05/17/2021 5:56 PM CDT Oxygen Saturation 97% 05/17/2021 5:56 PM CDT Inhaled Oxygen Concentration - - Weight 76.7 kg (169 lb) 02/04/2018 11:16 AM CDT Height 177.8 cm (5' 10) 02/04/2018 11:16 AM CDT Body Mass Index 24.25 02/04/2018 11:16 AM CDT Plan of Treatment Health Maintenance Due Date Last Done Comments COLOGUARD (AGES 45-75) - COL ON CA SCREENING 1957 COLON MONITORING 1957 COLONOSCOPY - COLON CA SCREENING 1957 CT COLONOGRAPHY - COLON CA SCREENING 1955 Colorectal Cancer Screening 1957 FIT - COLON CA SCREENING 1957 FLEX SIG - COLON CA SCREENING 1957 LIPID TESTING 1957 HEPATITIS C SCREENING 09/06/1975 DTAP/TDAP/TD VACCINES (1 - Tdap) 1976 PNEUMOCOCCAL VACCINE 50+ (1 of 1 - PCV) 2007 ZOSTER VACCINE (1 of 2) 2007 COVID-19 VACCINE (3 - 2023-2 5 season) 2024 01/14/2021, 12/24/2020 DEPRESSION SCREENING 10/30/2024 INFLUENZA VACCINE (Season Ended) 2025 08/03/2022 Respiratory Syncytial Virus (RSV) Vaccine Pt: or over 60 yrs (1 - 1-dose 75+ series) 2032 HEPATITIS B VACCINE Aged Out No longe r eligible based on patient's age to complete this topic HIB VACCINE Aged Out No longer eligi ble based on patient's age to complete this topic HPV VACCINE Aged Out No longer eligi ble based on patient's age to complete this topic MENINGOCOCCAL (Group B) VACCINE SHARED DECISION-MAKING Aged Out No longer eligible based on patient's age to complete this topic MENINGOCOCCAL GROUPS A/C/Y/W VACCINE Aged Out No longer eligible b ased on patient's age to complete this topic Insurance [facility] [place] [address] * Guarantor: CHRISTINE REYES Account Type Relation to Patient Date of Phone Billing Address Personal/Family 1955 [place] [address] Care Teams Laborer Tree Tapping Relationship Specialty Start Date End Date Dung Lara MD [address] [place] [address] PCP - General Family Medicine 02/16/24 Lexa Damico MD [address] [place] [address] Family Medicine 10/02/17
[2025-03-20 13:31] VITALS: BP 132/83; PULSE 64; RESP 16; TEMP 36.6; O2SAT 100
--- OUTSIDE RECORDS SUMMARY | 2025-03-20 15:21 | XMS_ITS | Referral Summary ---
Author Organization [facility] [address] Address [address] [place] [address] Care Team Providers Care Machine Molder Name Role Phone Dung Lara MD Primary Care Provider [phone] Lexa Damico MD Unavailable [phone] Allergies No known active allergies Medications [...] on file Legal Sex Male 10:21 PM PATTERN LEASE INSPECTOR Gender Identity Not on file Sexual Orientation [...] Plan of Treatment Not on file Insurance [facility] Care Teams Machine Molder Relationship Specialty Start Date End Date Dung Lara MD [address] [address] PCP - General Family Medicine 12/30/22 Lexa Damico MD [facility] [place] [address] 12/30/22
--- OUTSIDE RECORDS SUMMARY | 2025-03-20 15:21 | XMS_ITS | Encounter Summary ---
Author Organization [facility] Address [address] [facility] [place] [address] Care Team Providers Care Board Setter Name Role Phone Lexa Damico MD Primary Care Provider [phone] Lexa Damico MD Unavailable Dung Lara MD Primary Care Provider [phone] Encounter Details Date Type Department Care Team (Late st Contact Info) Description 03/25/2020 Lab Requisition [facility] [address] [facility], [facility] [place] [phone] Jessica Lara, [address] [facility] 3 [place] [address] Social History Tobacco Use Types Packs/Day Years [...] AM CDT) Case Report Dermatopathology Report Case: [id number] Authorizing Provider: Jessica Lara DO Collected: 03/24/2020 12:00 AM Ordering Location: [facility] DermPath Lab Received: 03/25/2020 06:39 AM Pathologist: [...] The specimen consists of a shave measuring 7x8g7sn. Jar 0. Specimen B: Received is one formalin filled container labeled with the patient's name and designated post crown of scalp. The specimen consists of a shave measuring 7w3u8gi. Jar 0. Specimen C: Received is one formalin filled container labeled with the patient's name and designated right chest. The specimen consists of a shave measuring [id number]. Jar 0. 0 6:00 PM CDT DERMATOPATHOLOGY [...] characteristic determined by the Dermatopathology Laboratory at [facility], directed by Dr. Brook Durant. These tests need not be, and therefore are not, approved by the [place] Food and Drug Administration. The tests are used for clinical purposes. Billing Codes Specimen Charges Stain Charges 75832 [id number] 61394 1 1 1 0 6:00 PM CDT [...] Final Result Performing Organization Address City/State/[facility] Co de Phone Number DERMATOPATHOLOGY LABORATORY [facility] - Department of Dermatology [facility]/[address] [phone] documented in this encounter Visit Diagnoses Not on filedocumented in this encounter Care Teams Board Setter Relationship Specialty Start Date End Date Lexa Damico MD [address] [place] [address] PCP - General Family Medicine 10/02/17 02/15/24 Dung Lara MD [address] [place] [address] PCP - General Family Medicine 02/16/24 Lexa Damico MD [address] [place] [address] Family Medicine 10/02/17 documented as of this encounter
--- OUTSIDE RECORDS SUMMARY | 2025-03-20 15:21 | XMS_ITS | Clinical Summary ---
Author Organization [facility] Address [address] [facility] [place] [address] Care Team Providers Care Processing Technician Name Role Phone Lexa Damico MD Unavailable Dung Lara MD Primary Care Provider Source Comments [facility],non-owned Affiliates and Associated Physician Practices is amultiple site organization consisting of ambulatory clinics and hospital sitesin [place], [place], [place] and [place]. This disclosure is being madepursuant to the Care Everywhere program and may not contain all information available regarding this patient. Last updated 18.[facility] Allergies No known active allergies Medications * [...] patient's age to complete this topic Insurance [facility] * Guarantor: CHRISTINE REYES Account Type Relation to Patient Date of Phone Billing Address Personal/Family 1955 [place] [address] Care Teams Processing Technician Relationship Specialty Start Date End Date Dung Lara MD [address] [place] [address] PCP - General Family Medicine 02/16/24 Lexa Damico MD [address] [place] [address] Family Medicine 10/02/17
--- OUTSIDE RECORDS SUMMARY | 2025-03-20 15:21 | XMS_ITS | Clinical Summary ---
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 Gender Identity Not on file Sexual Orientation [...] 08/23/2022, 08/03/2022, 08/09/2021, Additional history exists Insurance [facility]PP[facility] Address: [address] [address] [facility]PPO Address: [address] [address] [facility]PPO Address: [address] [facility] H[facility]PPO Address: [id number] [place] [address] Care Teams Help Desk Team Leader Relationship Specialty Start Date End Date Dung Lara MD [address] [facility] [address] PCP - General Family Medicine 12/30/22 Lexa Damico MD [facility] [place] [address] 12/30/22
--- OUTSIDE RECORDS SUMMARY | 2025-03-20 15:21 | XMS_ITS | Encounter Summary ---
Author Organization [facility] Address [address] [place] [address] Care Team Providers Care Applier Name Role Phone Lexa Damico MD Primary Care Provider [phone] Lexa Damico MD Unavailable Dung Lara MD Primary Care Provider [phone] Encounter Details Date Type Department Care Team (Late st Contact Info) Description 09/30/2020 Lab Requisition [facility] [address], [facility] [place] [id number] Santa Kennedy MD [address] [facility] [address] [place] [address] Social History Tobacco Use Types Packs/Day Years [...] Comments DERMATOPATHOLOGY Routine 09/29/2020 12:0 0 AM CREW CALLER documented in this encounter Results * DERMATOPATHOLOGY (09/29/2020 12:00 AM CREW CALLER) Case Report Dermatopathology Report Case: [id number] Authorizing Provider: Santa Kennedy MD Collected: 09/29/2020 12:00 AM Ordering Location: [facility] Received: 09/30/2020 06:05 AM Pathologist: Viola Durant MD Specimen: Skin, right posterior shoulder 0 2:33 PM [facility] Final Diagnosis Specimen A. SKIN, right posterior shoulder: SEBORRHEIC KERATOSIS, IRRITATED AND INFLAMED (L82.0) OVERLYING CUTANEOUS HORN (L85.8) 0 2:33 PM [facility] at [address]33 CREW CALLER Clinical History R/O SCC, pink papule. 0 2:33 PM [facility] Gross Description Specimen A: Received is one formalin filled container labeled with the patient's name and designated right posterior shoulder. The specimen consists of a shave measuring [id number]. Jar 0. 0 2:33 PM [facility] Microscopic Description Specimen A. SKIN, right posterior shoulder: Sections show acanthosis, papillomatosis, hyperkeratosis, and squamous eddies. There is a lymphohistiocytic infiltrate within the papillary dermis. There is a column of marked compact hyperkeratosis. 0 2:33 PM [facility] Disclaimer An external and internal positive and negative controls are appropriate for the histochemical, immunohistochemical and immunofluorescence stain(s) in this case (if any), except where stated explicitly. The performance characteristics of the stain(s) cited in this report were developed and its performance characteristic determined by the Dermatopathology Laboratory at [facility], directed by Dr. Brook Durant. These tests need not be, and therefore are not, approved by the [place] Food and Drug Administration. The tests are used for clinical purposes. Billing Codes Specimen Charges Stain Charges 18202 1 0 2:33 PM [facility] Embedded Images 0 2:33 PM [facility] Pathology/Cytolog y TISSUE SPECIMEN FROM SKIN / Unknown 09/29/2020 09/30/2020 6:05 AM [facility] Santa Kennedy MD LAB - PATHOLOGY/CYTOLOGY ORD ERABLES Final Result DERMATOPATHOLOGY LABORATORY [facility] - Department of Dermatology [address] [phone] documented in this encounter Visit Diagnoses Not on filedocumented in this encounter Care Teams Applier Relationship Specialty Start Date End Date Lexa Damico MD [address] [place] [address] PCP - General Family Medicine 10/02/17 02/15/24 Dung Lara MD [address] [facility] [address] [place] [id number] PCP - General Family Medicine 02/16/24 Lexa Damico MD [address] [place] [address] Family Medicine 10/02/17 documented as of this encounter
--- NOTE | 2025-03-20 16:10 | ED_ITS ---
HPI - Extremity Injury (Lower) General Chief Complaint: Extremity Injury, Lower Stated Complaint: Right foot injury-missed a step Time Seen by Provider: 03/20/25 15:04 Related Data Home Medications ?Medication ?Instructions ?Recorded ?Confirmed ?Last Taken ?Type carvedilol 3.125 mg tablet 3.125 mg PO Q12H 02/17/21 09/06/24 08/30/24 History losartan 50 mg-hydrochlorothiazide 1 tablet PO DAILY 02/17/21 09/06/24 08/30/24 History 12.5 mg tablet fluticasone 100 mcg-salmeterol 50 1 inh inhalation Q12H PRN asthma 09/01/23 09/06/24 Unknown History mcg/dose blistr powdr for inhalation (Advair Diskus) Allergies Allergy/AdvReac Type Severity Reaction Status Date / Time No Known Allergies Allergy Verified 03/20/25 13:18 [facility] Past Medical History Medical History Acute diverticulitis Adenomatous colon polyp Tubulovillous adenoma descending colon 9 mm 09/16/2019 with recheck in [address] Vasques. Small benign-appearing rectal polyp, Tubular adenoma, on colonoscopy 08/30/2024 with recheck in 7 years. Bloating BMI 24.0-24.9, adult BMI 25.0-25.9,adult Cellulitis of right forearm Chronic neck pain x-ray of the cervical spine on 01/27/2022 was unremarkable except for loss of cervical lordosis. X-ray cervical spine on 06/06/2024 was unremarkable. Cough present for greater than 3 weeks Cough variant asthma Encounter for prostate cancer screening PSA 0.87 on 02/22/2022. Encounter for wellness examination in adult Essential (primary) hypertension History of migraine headaches Hx of diverticulitis of colon (10/14/20) acute sigmoid diverticulosis on 10/14/2020. Normal CT of the abdomen and pelvis on 08/07/2024. Impacted cerumen, right ear Loose stools Lower abdominal pain CT of the abdomen and pelvis on 08/07/2024 was normal. Migraine without aura and without status migrainosus, not intractable Nonvenomous spider bite Overweight (BMI 25.0-29.9) Pharyngitis, acute PVC (premature ventricular contraction) Rash Small intestinal bacterial overgrowth (SIBO) Special screening for other malignant neoplasms Family History Family History Mother Patient's mother is in good health Father Patient's father is in good health Grandparent Family history of dementia Family history of throat cancer, Onset Age: 82 Social History Social History Smoking status: Never smoker Alcohol intake: current Drinks per week: 4 Substance use: never Substance use type: does not use Do You Feel Safe in your Home?: Yes Lack of Transportation: No Lack of Food: Never True Current Housing: I Have Housing Concerned About Future Housing: No Difficulty Paying Gas/Electric Bills: No Difficulty Paying for Meds: No Currently Unemployed: No Education: Master's Degree or Higher Difficulty w/ Childcare or Family Care: No Living arrangements: with family Gender identity (if verbalized by the patient): Male Spiritual care concerns: No Course Vital Signs Vital signs: Vital Signs Temperature 97.9 F 03/20/25 13:31 Pulse Rate 64 03/20/25 13:31 Respiratory Rate 16 03/20/25 13:31 Blood Pressure 132/83 03/20/25 13:31 Pulse Oximetry 100 03/20/25 13:31 Temperature 97.9 F 03/20/25 13:31 Pulse Rate 64 03/20/25 13:31 Respiratory Rate 16 03/20/25 13:31 Blood Pressure 132/83 03/20/25 13:31 Pulse Oximetry 100 03/20/25 13:31 Discharge Plan Discharge Clinical Impression: Fracture of 5th metatarsal Patient Disposition: Home Condition: Stable Instructions: Crutch Instructions (ED), Foot Fracture in Adults (ED) Additional Instructions: Follow-up with orthopedic surgery for further treatment evaluation. When you suffered an injury to a bone in her body and are immobilized you are at increased risk of blood clots. If you develop pain or swelling in your lower extremity you may need a ultrasound. If you will be traveling soon you should make sure you get up and move around at regular intervals to decrease the possibility of clot formation. Call Dr. Shanks to schedule a follow up appointment. Patient Language: Greenlandic Prescriptions: New hydrocodone-acetaminophen 5-325 mg tablet 1 tablet PO Q6H PRN (Reason: pain) Qty: 20 0RF No Action carvedilol 3.125 mg tablet 3.125 mg PO Q12H Rx Instructions: must administer with a meal/food losartan-hydrochlorothiazide 50-12.5 mg tablet 1 tablet PO DAILY fluticasone propion-salmeterol [Advair Diskus] 100-50 mcg/dose blister with device 1 inh inhalation Q12H PRN (Reason: asthma) sumatriptan succinate 100 mg tablet See Rx Instructions PO .COMPLEX Qty: 10 11RF Rx Instructions: take 1 tab at onset of headache; if no relief may repeat 1 tab in 2hr; max = 2 tabs/24 hrs PO Follow-up/Referrals: Dung Lara MD [Primary Care Provider] - Franc Shanks MD [Physician] - 1 Week
== END 2025-03-20 16:45 | disposition home or self-care (01) ==
PROVIDERS: Emergency Provider Emergency Medicine; PCP Family Medicine
DX: S92.351A Displaced fracture of fifth metatarsal bone, right foot, initial encounter for closed fracture (principal); I10 Essential (primary) hypertension; J45.991 Cough variant asthma; Z86.0101 Personal history of adenomatous and serrated colon polyps; W10.9XXA Fall (on) (from) unspecified stairs and steps, initial encounter
CPT/HCPCS: 73630; 99284